=== PATIENT | male | born 2000 | race Caucasian/White ===

== ENCOUNTER 2021-04-03 18:44 | Emergency (ER) | payer OTHER ==
[~2021-04-03] VITALS: Ht 180.3 cm; Wt 111.4 kg
[2021-04-03 18:58] VITALS: TEMP 98.2
[2021-04-03] MEDS ORDERED: ALBUTEROL0.83 MG/ML IH ×3 (20:20→21:07)
[2021-04-03] MEDS ORDERED: PREDNISONE20 MG PO ×3 (20:20→21:07)
[2021-04-03 20:27] VITALS: BP 114/77; PULSE 123
== END 2021-04-03 20:30 | disposition home or self-care (01) ==
LOC: COL.ER 18:44
DX: J45.909 Unspecified asthma, uncomplicated (principal); Z20.822 Contact with and (suspected) exposure to COVID-19; Z86.16 Personal history of COVID-19
CPT/HCPCS: J7512